=== PATIENT | male | born 1950 | race Caucasian/White ===

== ENCOUNTER → 2019-01-30 | Day surgery (SDC) | payer MEDICARE, BC ==
--- NOTE | 2019-01-30 09:15 | NUR ---
Dr. Bundy in to speak w/ pt and regarding cancellation of colonoscopy d/t new onset of atrial fib per EKG performed. Pt and in agreement and will f/u with MIMI Beltran at 1000 this am.
== END | disposition home or self-care (01) ==
LOC: MSO 08:16
DX: Z12.11 Encounter for screening for malignant neoplasm of colon (principal); Z53.09 Procedure and treatment not carried out because of other contraindication; I48.91 Unspecified atrial fibrillation

== ENCOUNTER → 2020-10-03 | Outpatient (CLI) | payer MEDICARE, BC | LOC: PT 13:04 | DX: M16.11 Unilateral primary osteoarthritis, right hip (principal) ==

== ENCOUNTER 2020-10-18 09:52 | Outpatient (RCR) | payer MEDICARE, BC | END 2021-01-16 | disposition home or self-care (01) | LOC: PT | DX: Z96.641 Presence of right artificial hip joint (principal) ==

== ENCOUNTER 2021-09-15 13:06 | Outpatient (RCR) | payer MEDICARE, BC | END 2021-09-21 | disposition home or self-care (01) | LOC: PT | DX: M25.512 Pain in left shoulder (principal) ==

== ENCOUNTER → 2021-09-22 | Day surgery (SDC) | payer MEDICARE, BC | LOC: MSO 07:56 | DX: Z12.11 Encounter for screening for malignant neoplasm of colon (principal); D12.0 Benign neoplasm of cecum; D12.4 Benign neoplasm of descending colon | CPT/HCPCS: 00811; J2704; J7120 ==

== ENCOUNTER 2021-09-24 07:55 | Outpatient (RCR) | payer MEDICARE, BC | END 2021-10-22 | disposition home or self-care (01) | LOC: PT | DX: M25.512 Pain in left shoulder (principal) ==

== ENCOUNTER 2021-10-28 08:00 | Outpatient (RCR) | payer MEDICARE, BC | END 2021-11-18 15:04 | disposition home or self-care (01) | LOC: PT 08:00 | DX: M75.52 Bursitis of left shoulder (principal) ==